=== PATIENT | female | born 1990 | race Caucasian/White ===

== ENCOUNTER 2017-01-03 05:36 | Outpatient (CLI) | payer BC, OTHER ==
[~2017-01-03] VITALS: Ht 168.9 cm; Wt 59.0 kg
[2017-01-03] MEDS ORDERED: LISD30CA3 PO (09:26)
[2017-01-03] MEDS ORDERED: ETHY1TAB3 PO (09:26)
== END 2017-01-03 09:51 ==
LOC: PREOP 05:36
PROVIDERS: ATTEND Obstetrics & Gynecology
DX: Z01.818 Encounter for other preprocedural examination (principal); R10.2 Pelvic and perineal pain; N80.9 Endometriosis, unspecified; D64.9 Anemia, unspecified

== ENCOUNTER 2017-01-08 11:01 | Day surgery (SDC) | payer BC, OTHER ==
[~2017-01-08] VITALS: Ht 168.9 cm; Wt 59.0 kg
[~2017-01-08 11:01] MED LIST: ETHY1TAB3 PO; LISD30CA3 PO
[2017-01-08 11:30] VITALS: BP 133/90
[2017-01-08] MEDS ORDERED: ceFAZolin 1 GM/NS 50 ML IVPB IV ONE ×2 (11:30)
[2017-01-08] MEDS ORDERED: CATHETER FLUSH 10 ML SYR IV PRN (11:30)
[2017-01-08] MEDS: LACTATED RINGERS 1,000 ML IV SCH ×2 (11:30→14:05)
[2017-01-08 11:41] LABS: BASOPHILS % (AUTO) 1 % (0-10); EOSINOPHILS # (AUTO) 0.3 10^3/uL (0.0-0.3); EOSINOPHILS % (AUTO) 4 % (0-10); LYMPHOCYTES # (AUTO) 2.3 X 10^3 (1.0-4.0); LYMPHOCYTES % (AUTO) 28 % (12-44); MEAN CORPUSCULAR HEMOGLOBIN 30 PG (25-34); MEAN CORPUSCULAR HGB CONC 34 G/DL (32-36); MEAN CORPUSCULAR VOLUME 88 FL (80-99); MEAN PLATELET VOLUME 8.7 FL (7.4-10.4); MONOCYTES # (AUTO) 0.4 X 10^3 (0.0-1.0); MONOCYTES % (AUTO) 5 % (0-12); NEUTROPHILS # (AUTO) 5.1 X 10^3 (1.8-7.8); NEUTROPHILS % (AUTO) 62 % (42-75); PLATELET COUNT 435 10^3/uL (130-400); RED BLOOD COUNT 4.41 10^6/uL (4.35-5.85); RED CELL DISTRIBUTION WIDTH 12.8 % (10.0-14.5); WHITE BLOOD COUNT 8.2 10^3/uL (4.3-11.0)
[2017-01-08] MEDS ORDERED: LIDOCAINE PF 2% 5 ML (XYLOCAINE) VIAL ONE (11:43)
[2017-01-08] MEDS ORDERED: proPOfol 200 MG/20 ML (DIPRIVAN) VIAL IV ONE (11:43)
[2017-01-08] MEDS ORDERED: SEVOFLURANE (ULTANE) 15 ML INHAL SOLN ONE ×7 (11:43→14:33)
[2017-01-08] MEDS ORDERED: DEXAMETHASONE PF 10 MG/ML (DECADRON) VIAL ONE (11:43)
[2017-01-08] MEDS ORDERED: LACTATED RINGERS 1,000 ML IV ONE ×2 (11:43→14:28)
[2017-01-08] MEDS ORDERED: ONDANSETRON 4 MG/2 ML (SDV) Z0FRAN ONE (11:43)
[2017-01-08] MEDS ORDERED: fentaNYL INJECTION 100 MCG/2 ML AMP ONE ×2 (11:44→13:57)
[2017-01-08] MEDS ORDERED: MIDAZOLAM 2 MG/2 ML (VERSED) VIAL ONE (11:44)
[2017-01-08] MEDS ORDERED: ROCURONIUM 50 MG/5 ML (ZEMURON) VIAL IV ONE (11:49)
[2017-01-08] MEDS ORDERED: BUP/EPI 0.25% 1:200,000 (MARCAINE) 10 ML VIAL IJ ONE (11:50)
[2017-01-08] MEDS ORDERED: D5 LR IV SOLUTION 1,000 ML IV SCH (13:06)
--- NOTE | 2017-01-08 13:06 | Progress Note-Pre Operative ---
Pre-Operative Progress Note H&P Reviewed The H&P was reviewed, patient examined and no changes noted. Date Seen by Provider: Jan 08, 2017 Time Seen by Provider: 13:06 Date H&P Reviewed: Jan 08, 2017 Time H&P Reviewed: 13:06 Pre-Operative Diagnosis: cchronic pelvic pain not resolved with medical management MARLEN ARZATE MD Jan 08, 2017 1:06 pm
[2017-01-08] MEDS ORDERED: OXYC-202 PO (13:08)
--- NOTE | 2017-01-08 13:09 | Discharge Instructions ---
Discharge Instructions Discharge Medications New, Converted or Re-Newed RX: RX on Chart Patient Instructions Patient Instructions: as directed Return to The Hospital For: as directed Activity & Diet Discharge Diet: No Restrictions Activity as Tolerated: No Orders-Post D/C & Referrals Follow Up Appt: return to clinic in 1 week for suture removal Call to make follow up appt. for patient in 4 weeks. Activity: Rest for 24 hours, than as tolerated. Wound Care: May remove Band-Aid tomorrow. Replace as desired. Keep incisions clean and dry. Wash daily with soap and water. Diet: As tolerated-Clear Liquids only if nauseated. May shower or tub bathe as desired. No driving for 24 hours, no alcoholic beverages for 24 hours, and nothing per vagina (no tampons, douching, or intercourse) for 2 weeks. Patient to return to the clinic as soon as possible for: Temperature greater than 101F, Severe Pain, Foul discharge from incision or vagina, Excessive Bleeding (more than a period). MARLEN ARZATE MD Jan 08, 2017 1:09 pm
[2017-01-08] MEDS ORDERED: ONDANSETRON 4 MG/2 ML (SDV) Z0FRAN IVP PRN ×2 (13:15→14:30)
[2017-01-08] MEDS ORDERED: PROMETHAZINE INJ 25 MG/ML (PHENERGAN) AMP IM ONE (13:15)
[2017-01-08] MEDS ORDERED: ESTROGENS CONJ IV 25 MG/5 ML (PREMARIN) VIAL IVP ONE (13:15)
[2017-01-08] MEDS ORDERED: KETOROLAC 30 MG/ML VIAL IVP ONE ×2 (13:15→14:30)
[2017-01-08] MEDS ORDERED: MEPERIDINE (DEMEROL) INJ 100 MG/ML IM ONE (13:15)
[2017-01-08] MEDS ORDERED: oxyCODONE/APAP 10/325MG (PERCOCET 10) TABLET PO PRN (13:15)
[2017-01-08] MEDS ORDERED: morphine INJ 10 MG/ML 1ML (SYR OR VIAL) ONE (14:12)
[2017-01-08] MEDS ORDERED: WATER (STERILE) FOR INJECTION 10 ML ONE (14:12)
[2017-01-08] MEDS ORDERED: ESTROGENS CONJ IV 25 MG/5 ML (PREMARIN) VIAL ONE (14:12)
[2017-01-08] MEDS ORDERED: KETOROLAC 30 MG/ML VIAL ONE (14:12)
[2017-01-08] MEDS ORDERED: PROMETHAZINE INJ 25 MG/ML (PHENERGAN) AMP IVP PRN (14:30)
[2017-01-08] MEDS: morphine INJ 10 MG/ML 1ML (SYR OR VIAL) IVP PRN ×2 (15:04→15:12)
[2017-01-08 15:45] VITALS: BP 148/89
[2017-01-08] MEDS ORDERED: oxyCODONE/APAP 10/325MG (PERCOCET 10) TABLET PO ONE (15:47)
[2017-01-08 16:15] VITALS: BP 135/77
[2017-01-08 16:45] VITALS: BP 142/78
[2017-01-08 17:30] VITALS: BP 142/78
--- NOTE | 2017-01-09 17:55 | OPERATIVE REPORT ---
PROCEDURE PHYSICIAN: MARLEN ARZATE DATE OF PROCEDURE: 01/08/2017 PREOPERATIVE DIAGNOSIS: Chronic pelvic pain. POSTOPERATIVE DIAGNOSES: 1. Chronic pelvic pain. 2. Endometriosis. 3. Polycystic ovaries. 4. Pelvic adhesions. 5. Chronic versus acute appendicitis. OPERATIVE PROCEDURE: 1. Laparoscopic destruction of endometriosis. 2. Laparoscopic appendectomy. 3. Laparoscopic adhesiolysed. 4. Laparoscopic ovarian cyst aspirations. OPERATIVE DESCRIPTION: With the patient in the supine position, under satisfactory general anesthesia, she was repositioned in dorsal lithotomy position in the [facility] and prepped and draped in usual fashion for abdominal and vaginal surgery. The urinary bladder was drained with straight catheter. A weighted speculum was placed in the posterior fornix of the vagina. Cervix exposed and grasped anteriorly with single-tooth tenaculum. The uterus sounded to 8.5 cm with uterine sound. The cervix was then serially dilated with Justin dilators to accommodate a uterine manipulator, which was placed and the bulb filled 4 mL of air. The tenaculum and speculum were removed and the patient brought in low dorsal lithotomy position. A 5 mm incision was made in the left upper quadrant after first infiltrating the area with 0.25% Marcaine with epinephrine. Veress needle was placed through that incision into the abdominal cavity, correct placement confirmed with the water drop test and the abdomen insufflated with 2.4 liters of carbon dioxide. The Veress needle was removed and a 5 mm Optiview laparoscopic port placed under direct vision. The patient was placed in Trendelenburg and a port of 5 mm was placed suprapubically to allow exploration of the pelvis while finding that the appendix looked abnormal. A 12 mm port was then placed through an incision of that size in the inferior margin of the umbilicus. All port sites were infiltrated with 0.25% Marcaine with epinephrine prior to incisions. With the patient in Trendelenburg. The bowel was spilled partially up out of pelvis. There were some adhesions of the sigmoid to the left pelvic brim and over the left IP ligament. There were adhesions of the cecum to the right lower lateral anterior abdominal wall. The appendix was dilated and injected at its distal to point and there was tissue consistent with endometriosis involving the distal 3rd of the appendix. The right ureter was seen to peristalt before anything was done. Eventually the left ureter was dissected retroperitoneally from the left and was seen to peristaltic well. The uterus had some mottling consistent with adenomyosis. There obvious endometriosis implants in the ovarian fossa and in the cul-de-sac. The left ovary was densely adherent to the left pelvic brim. The right fallopian tube was adherent to the right round ligament. There were endometriosis implants in the anterior cul-de-sac. Attention was first turned to the right fallopian tube. It was dissected free from its adhesions on the round ligament restoring it to a normal position and anatomy. The right ovarian fossa endometriosis implants were touched with electrocautery to destroy them. Those implants in the cul-de-sac were destroyed as well. There were some filmy adhesions in the cul-de-sac that were divided. These adhesions were beginning to obliterate the cul-de-sac. These were taken free. The left fallopian tube was obstructed by adhesions of the sigmoid. These adhesions were taken down very careful and meticulous dissection to allow the sigmoid to fall away from the pelvic brim. The fallopian tube was then dissected free from its adhesions of the ovary and then the ovary was dissected free with some difficulty from its extensive fibrous adhesions in the ovarian fossae. With the tube and ovary eventually freed and the endometriosis implants in the ovarian fossa on the left was destroyed with electrocautery as well. Here there was very little to no bleeding throughout the process up to this point. The pelvis was now irrigated, examined for hemostasis, which was complete. Additional implants of endometriosis in the pelvis were destroyed with electrocautery as were those then on the anterior cul-de-sac. With hemostasis assured, no further abnormal pathology, involving endometriosis, multiple cysts on both ovaries were touched with electrocautery to fenestrate and drain them. The small amount of straw-colored fluid was aspirated out of the pelvis. With that done, with hemostasis complete and with no further pelvic pathology, attention was then turned to the cecum and the appendix. The cecum was adherent to the right anterior lateral abdominal wall. These adhesions were taken free allowing mobility of the cecum and then the appendix was grasped and elevated. The mesoappendix was perforated close to the base of the appendix. Endo FRANK was placed across the base of the appendix and fired. A second firing of the end FRANK across the mesoappendix, severed it from its attachments. The appendix was then placed in an Endobag and brought out through the umbilical port. The stump of the appendix was copiously irrigated and then treated with several drops of Betadine solution. The pelvis was examined a final time now for hemostasis, which was complete and with no further remaining abnormal pathology, the procedure was terminated. The operative instruments were removed under direct vision as were the ports. The patient brought out of Trendelenburg and the abdomen was evacuated of insufflating gas. The skin incisions were hemostatic and they were closed with interrupted sutures of 3-0 nylon. The fascia at the infraumbilical incision was closed with [id number] suture of 2-0 Vicryl as well. The uterine manipulator bulb was drained. The instruments were removed from the vagina. Speculum replaced in the vagina. The cervix was examined for hemostasis, which was complete. There was no bleeding from the cervical os and no bleeding from the puncture sites for the tenaculum. With sponge and needle counts correct, hemostasis assured, and the procedure completed, the patient was uneventfully awakened from her general anesthesia and transferred to recovery room in stable condition with plans for discharge home PAR. Estimated blood loss was minimal. The patient tolerated the procedure well. Job ID: [id number] Dictated Date: 01/08/2017 14:45:42 Manager Banking Date: 01/09/2017 09:09:09 / liu
== END 2017-01-08 17:30 | disposition home or self-care (01) ==
LOC: SDC 11:01
PROVIDERS: ATTEND Obstetrics & Gynecology
DX: N80.1 Endometriosis of ovary (principal); N80.3 Endometriosis of pelvic peritoneum; N80.5 Endometriosis of intestine; K35.80 Unspecified acute appendicitis; E28.2 Polycystic ovarian syndrome; F90.9 Attention-deficit hyperactivity disorder, unspecified type; Z79.899 Other long term (current) drug therapy
CPT/HCPCS: 36415; 84703; 85025; 87081

== ENCOUNTER → 2019-03-13 | Outpatient (CLI) | payer OTHER ==
[~2019-03-13] MED LIST changes: +CATHETER FLUSH 10 ML SYR IV PRN; +HYDR-3812 PO; +LEVO75TA6 PO; +ONDA4TAB11 PO; +OXYC1TAB12 PO
--- NOTE | 2019-03-13 17:33 | Diagnostic Imaging Report ---
EXAMINATION: Hepatobiliary scan. INDICATION: Abdominal pain. FINDINGS: This study was performed following administration of 5.43 mCi of 99m-technetium Choletec. One can of Ensure was also administered. There are no prior studies available for comparison. There is a small amount of uptake within the gallbladder before 30 minutes. This would weight against the diagnosis of acute cholecystitis. There is also extension of the radiotracer into the small bowel indicating that the common bile duct is not obstructed. The ejection fraction is 45.6% (normal greater than 35%). IMPRESSION: 1. There is no evidence for acute cholecystitis or for obstruction of the common bile duct. 2. The ejection fraction is 45.6% and within normal limits. Dictated by: Dictated on workstation # [id number]
== END ==
LOC: CARD 12:25
PROVIDERS: ATTEND Surgery
DX: R10.11 Right upper quadrant pain (principal); R11.2 Nausea with vomiting, unspecified
CPT/HCPCS: 78227

== ENCOUNTER 2019-03-17 05:32 | Outpatient (CLI) | payer OTHER ==
[~2019-03-17] VITALS: Ht 170 cm; Wt 56.8 kg
[~2019-03-17 05:32] MED LIST changes: -CATHETER FLUSH 10 ML SYR IV PRN; -HYDR-3812 PO; -LEVO75TA6 PO; -ONDA4TAB11 PO
[2019-03-17] MEDS ORDERED: ONDA4TAB11 PO (10:17)
[2019-03-17] MEDS ORDERED: LEVO75TA6 PO (10:17)
[2019-03-18] MEDS ORDERED: HYDR-3812 PO (12:46)
== END 2019-03-17 10:30 | disposition home or self-care (01) ==
LOC: PREOP 05:32
PROVIDERS: ATTEND Surgery
DX: Z01.818 Encounter for other preprocedural examination (principal)

== ENCOUNTER → 2019-05-23 | Outpatient (CLI) | payer OTHER ==
[~2019-05-23] MED LIST changes: +HYDR-3812 PO; +LEVO75TA6 PO; +ONDA4TAB11 PO
== END ==
LOC: LAB FS 12:49
PROVIDERS: ATTEND Family Medicine
DX: Z77.21 Contact with and (suspected) exposure to potentially hazardous body fluids (principal)
CPT/HCPCS: 36415; 86703; 86803

== ENCOUNTER → 2019-06-24 | Outpatient (CLI) | payer OTHER | LOC: LAB FS 14:37 | PROVIDERS: ATTEND Family Medicine | DX: Z11.3 Encounter for screening for infections with a predominantly sexual mode of transmission (principal) | CPT/HCPCS: 36415; 86592; 87491; 87591 ==

== ENCOUNTER → 2019-06-25 | Outpatient (CLI) | payer OTHER | LOC: LABNPT 16:09 | PROVIDERS: ATTEND Family Medicine | DX: Z01.89 Encounter for other specified special examinations (principal) | CPT/HCPCS: 86701; 86703; 86803 ==

== ENCOUNTER → 2019-06-27 | Outpatient (CLI) | payer OTHER | LOC: LAB FS 17:15 | PROVIDERS: ATTEND Family Medicine | DX: Z00.00 Encounter for general adult medical examination without abnormal findings (principal) ==

== ENCOUNTER → 2019-08-21 | Outpatient (CLI) | payer OTHER ==
[~2019-08-21] MED LIST changes: +ACHD5005 PO; -HYDR-3812 PO
== END ==
LOC: LAB FS 08:57
PROVIDERS: ATTEND Family Medicine
DX: E07.9 Disorder of thyroid, unspecified (principal)
CPT/HCPCS: 36415; 84443

== ENCOUNTER → 2019-10-20 | Outpatient (CLI) | payer OTHER | LOC: LAB FS 16:40 | PROVIDERS: ATTEND Otolaryngology Otolaryngology/Facial Plastic Surgery | DX: L30.9 Dermatitis, unspecified (principal) | CPT/HCPCS: 36415; 86003 ==

== ENCOUNTER → 2019-10-24 | Outpatient (CLI) | payer OTHER ==
[2019-10-24 15:04] LABS: CHOLESTEROL 157 MG/DL (< 200); HDL CHOLESTEROL 56 MG/DL (40-60); TRIGLYCERIDES 89 MG/DL (<150); VLDL CHOLESTEROL 18 MG/DL (5-40)
== END ==
LOC: LAB FS 12:23
PROVIDERS: ATTEND Nurse Practitioner Family
DX: L70.0 Acne vulgaris (principal); Z79.899 Other long term (current) drug therapy
CPT/HCPCS: 36415; 80061; 84703

== ENCOUNTER → 2019-10-27 | Outpatient (CLI) | payer OTHER | LOC: LAB FS 16:26 | PROVIDERS: ATTEND Family Medicine | DX: Z20.828 Contact with and (suspected) exposure to other viral communicable diseases (principal) | CPT/HCPCS: 36415; 80051; 86769 ==

== ENCOUNTER → 2019-11-28 | Outpatient (CLI) | payer OTHER | LOC: LAB FS 11:28 | PROVIDERS: ATTEND Nurse Practitioner Family | DX: Z32.02 Encounter for pregnancy test, result negative (principal); L70.0 Acne vulgaris; Z79.899 Other long term (current) drug therapy | CPT/HCPCS: 84703 ==

== ENCOUNTER → 2020-01-09 | Outpatient (CLI) | payer OTHER | LOC: LABNPT 10:31 | PROVIDERS: ATTEND Nurse Practitioner Family | DX: L70.0 Acne vulgaris (principal); Z79.899 Other long term (current) drug therapy | CPT/HCPCS: 84703 ==

== ENCOUNTER → 2020-02-17 | Outpatient (CLI) | payer OTHER ==
[2020-02-17 14:10] LABS: ALANINE AMINOTRANSFERASE 42 U/L (0-55); ALBUMIN 4.1 GM/DL (3.2-4.5); ALKALINE PHOSPHATASE 67 U/L (40-136); BILIRUBIN,TOTAL 0.2 MG/DL (0.1-1.0); BUN/CREATININE RATIO 12; CALCIUM 9.2 MG/DL (8.5-10.1); CARBON DIOXIDE 25 MMOL/L (21-32); CHLORIDE 104 MMOL/L (98-107); CREATININE SERUM 0.76 MG/DL (0.60-1.30); GFR ESTIMATED > 60; GLUCOSE 94 MG/DL (70-105); POTASSIUM 4.5 MMOL/L (3.6-5.0); SODIUM 138 MMOL/L (135-145)
[2020-02-17 15:34] LABS: CHOLESTEROL 145 MG/DL (< 200); HDL CHOLESTEROL 51 MG/DL (40-60); TRIGLYCERIDES 85 MG/DL (<150); VLDL CHOLESTEROL 17 MG/DL (5-40)
== END ==
LOC: LAB FS 12:53
PROVIDERS: ATTEND Nurse Practitioner Family
DX: L70.0 Acne vulgaris (principal); Z79.899 Other long term (current) drug therapy
CPT/HCPCS: 36415; 80053; 80061; 84703

== ENCOUNTER → 2020-03-18 | Outpatient (CLI) | payer OTHER ==
[2020-03-18 12:14] LABS: ALANINE AMINOTRANSFERASE 48 U/L (0-55); ALBUMIN 4.8 GM/DL (3.2-4.5); ALKALINE PHOSPHATASE 74 U/L (40-136); BILIRUBIN,TOTAL 0.3 MG/DL (0.1-1.0); BUN/CREATININE RATIO 14; CALCIUM 9.7 MG/DL (8.5-10.1); CARBON DIOXIDE 25 MMOL/L (21-32); CHLORIDE 101 MMOL/L (98-107); CREATININE SERUM 0.77 MG/DL (0.60-1.30); GFR ESTIMATED > 60; GLUCOSE 101 MG/DL (70-105); POTASSIUM 3.7 MMOL/L (3.6-5.0); SODIUM 140 MMOL/L (135-145); TOTAL PROTEIN 8.5 GM/DL (6.4-8.2)
[2020-03-18 14:57] LABS: CHOLESTEROL 184 MG/DL (< 200); HDL CHOLESTEROL 60 MG/DL (40-60); TRIGLYCERIDES 111 MG/DL (<150); VLDL CHOLESTEROL 22 MG/DL (5-40)
== END ==
LOC: LAB FS 11:03
PROVIDERS: ATTEND Nurse Practitioner Family
DX: L70.0 Acne vulgaris (principal); Z79.899 Other long term (current) drug therapy
CPT/HCPCS: 36415; 80053; 80061; 84703

== ENCOUNTER → 2020-04-15 | Outpatient (CLI) | payer OTHER | LOC: LAB FS 09:33 | PROVIDERS: ATTEND Nurse Practitioner Family | DX: L70.0 Acne vulgaris (principal); Z79.899 Other long term (current) drug therapy | CPT/HCPCS: 84703 ==

== ENCOUNTER → 2020-05-19 | Outpatient (CLI) | payer OTHER | LOC: LAB FS 09:32 | PROVIDERS: ATTEND Nurse Practitioner Family | DX: L70.0 Acne vulgaris (principal); Z79.899 Other long term (current) drug therapy | CPT/HCPCS: 84703 ==

== ENCOUNTER → 2020-06-22 | Outpatient (CLI) | payer OTHER | LOC: LAB FS 10:00 | PROVIDERS: ATTEND Nurse Practitioner Family | DX: C70.0 Malignant neoplasm of cerebral meninges (principal); Z79.899 Other long term (current) drug therapy | CPT/HCPCS: 84703 ==

== ENCOUNTER → 2020-08-03 | Outpatient (CLI) | payer OTHER | LOC: RAD FS 11:53 | PROVIDERS: ATTEND Nurse Practitioner Family | DX: Z79.899 Other long term (current) drug therapy (principal) | CPT/HCPCS: 84703 ==

== ENCOUNTER → 2020-09-16 | Outpatient (CLI) | payer OTHER | LOC: LAB FS 11:56 | PROVIDERS: ATTEND Family Medicine | DX: E03.9 Hypothyroidism, unspecified (principal) | CPT/HCPCS: 36415; 84443 ==

== ENCOUNTER → 2021-02-09 | Outpatient (CLI) | payer OTHER | LOC: LAB FS 15:22 | PROVIDERS: ATTEND Physician Assistant | DX: L70.0 Acne vulgaris (principal); Z79.899 Other long term (current) drug therapy | CPT/HCPCS: 36415; 84703 ==

== ENCOUNTER → 2021-03-12 | Outpatient (CLI) | payer OTHER ==
[2021-03-12 10:00] LABS: ALBUMIN 4.3 GM/DL (3.2-4.5); BILIRUBIN,TOTAL 0.2 MG/DL (0.1-1.0); CALCIUM 9.1 MG/DL (8.5-10.1); CREATININE SERUM 0.89 MG/DL (0.60-1.30); POTASSIUM 4.1 MMOL/L (3.6-5.0); TOTAL PROTEIN 7.4 GM/DL (6.4-8.2)
== END ==
LOC: LAB FS 09:13
PROVIDERS: ATTEND Physician Assistant
DX: L70.0 Acne vulgaris (principal); Z79.899 Other long term (current) drug therapy
CPT/HCPCS: 36415; 80053; 84478; 84703

== ENCOUNTER → 2021-04-10 | Outpatient (CLI) | payer OTHER ==
[2021-04-10 21:53] LABS: ALBUMIN 4.5 GM/DL (3.2-4.5); BILIRUBIN,TOTAL 0.2 MG/DL (0.1-1.0); CALCIUM 9.5 MG/DL (8.5-10.1); CREATININE SERUM 0.78 MG/DL (0.60-1.30); POTASSIUM 3.9 MMOL/L (3.6-5.0); TOTAL PROTEIN 7.5 GM/DL (6.4-8.2)
== END ==
LOC: LAB 21:15
PROVIDERS: ATTEND Physician Assistant
DX: L70.0 Acne vulgaris (principal); Z79.899 Other long term (current) drug therapy
CPT/HCPCS: 36415; 80053; 84478; 84703

== ENCOUNTER → 2021-04-11 | Outpatient (CLI) | payer OTHER | LOC: LAB FS 08:06 | PROVIDERS: ATTEND Physician Assistant | DX: L70.0 Acne vulgaris (principal); Z79.899 Other long term (current) drug therapy | CPT/HCPCS: 36415; 84478 ==

== ENCOUNTER → 2021-05-10 | Outpatient (CLI) | payer OTHER ==
[2021-05-10 11:50] LABS: ALBUMIN 4.5 GM/DL (3.2-4.5); BILIRUBIN,TOTAL 0.3 MG/DL (0.1-1.0); CALCIUM 9.7 MG/DL (8.5-10.1); CREATININE SERUM 0.74 MG/DL (0.60-1.30); POTASSIUM 4.3 MMOL/L (3.6-5.0); TOTAL PROTEIN 7.9 GM/DL (6.4-8.2)
== END ==
LOC: LAB FS 09:14
PROVIDERS: ATTEND Physician Assistant
DX: L70.0 Acne vulgaris (principal); L20.89 Other atopic dermatitis; Z79.899 Other long term (current) drug therapy
CPT/HCPCS: 36415; 80053; 84703

== ENCOUNTER → 2021-05-11 | Outpatient (CLI) | payer OTHER | LOC: LAB FS 08:56 | PROVIDERS: ATTEND Physician Assistant | DX: L70.0 Acne vulgaris (principal); L20.89 Other atopic dermatitis; Z79.899 Other long term (current) drug therapy | CPT/HCPCS: 36415; 84478 ==

== ENCOUNTER → 2021-06-02 | Outpatient (CLI) | payer OTHER ==
[2021-06-06 17:19] LABS: FREE T4 (FREE THYROXINE) 1.1 NG/DL (0.70-1.48)
== END ==
LOC: LAB FS 14:14
PROVIDERS: ATTEND Registered Nurse Emergency
DX: E03.9 Hypothyroidism, unspecified (principal)
CPT/HCPCS: 36415; 84439; 84443

== ENCOUNTER → 2021-06-06 | Outpatient (CLI) | payer OTHER | LOC: LAB FS 19:40 | PROVIDERS: ATTEND Family Medicine | DX: E03.9 Hypothyroidism, unspecified (principal) | CPT/HCPCS: 36415; 84481 ==

== ENCOUNTER → 2021-06-08 | Outpatient (CLI) | payer OTHER | LOC: LAB FS 13:05 | PROVIDERS: ATTEND Family Medicine | DX: E06.3 Autoimmune thyroiditis (principal) | CPT/HCPCS: 36415; 86376 ==

== ENCOUNTER → 2021-06-14 | Outpatient (CLI) | payer OTHER | LOC: LAB FS 09:11 | PROVIDERS: ATTEND Dermatology | DX: L70.0 Acne vulgaris (principal); L20.89 Other atopic dermatitis; Z79.899 Other long term (current) drug therapy | CPT/HCPCS: 36415; 84703 ==

== ENCOUNTER → 2021-07-11 | Outpatient (CLI) | payer OTHER | LOC: LAB FS 08:18 | PROVIDERS: ATTEND Physician Assistant | DX: L70.0 Acne vulgaris (principal); L20.89 Other atopic dermatitis; Z79.899 Other long term (current) drug therapy | CPT/HCPCS: 36415; 84703 ==

== ENCOUNTER → 2021-08-12 | Outpatient (CLI) | payer OTHER ==
[2021-08-12 20:45] LABS: HEMATOCRIT 37 % (35-52); HEMOGLOBIN 12.3 g/dL (11.5-16.0); MEAN CORPUSCULAR HEMOGLOBIN 29 pg (25-34); MEAN CORPUSCULAR HGB CONC 34 g/dL (32-36); MEAN CORPUSCULAR VOLUME 88 fL (80-99); WHITE BLOOD COUNT 7.9 10^3/uL (4.3-11.0)
[2021-08-12 20:48] LABS: PLATELET COUNT 1113 10^3/uL (130-400)
[2021-08-12 20:49] LABS: BASOPHILS # (AUTO) 0.1 10^3/uL (0.0-0.1); BASOPHILS % (AUTO) 1 % (0-10); EOSINOPHILS # (AUTO) 0.3 10^3/uL (0.0-0.3); EOSINOPHILS % (AUTO) 3 % (0-10); LYMPHOCYTES # (AUTO) 2.8 X 10^3 (1.0-4.0); LYMPHOCYTES % (AUTO) 35 % (12-44); MEAN PLATELET VOLUME 7.9 fL (9.0-12.2); MONOCYTES # (AUTO) 0.5 X 10^3 (0.0-1.0); MONOCYTES % (AUTO) 6 % (0-12); NEUTROPHILS # (AUTO) 4.3 X 10^3 (1.8-7.8); NEUTROPHILS % (AUTO) 54 % (42-75)
[2021-08-12 20:53] LABS: ERYTHROCYTE SEDIMENTATION RATE 4 MM/HR (0-20)
[2021-08-12 21:13] LABS: EOSINOPHILS % (MANUAL) 3 %; LYMPHOCYTES % (MANUAL) 41 %; MONOCYTES % (MANUAL) 5 %; NEUTROPHILS % (MANUAL) 51 %; SMEAR SCAN COMMENT PLTS INCREASED
== END ==
LOC: LAB FS 20:21
PROVIDERS: ATTEND Family Medicine
DX: J06.9 Acute upper respiratory infection, unspecified (principal)
CPT/HCPCS: 36415; 82728; 83540; 83550; 85007; 85027; 85652; 86141

== ENCOUNTER → 2021-08-14 | Outpatient (CLI) | payer OTHER | LOC: LAB FS 21:13 | PROVIDERS: ATTEND Physician Assistant | DX: L70.0 Acne vulgaris (principal); Z79.899 Other long term (current) drug therapy | CPT/HCPCS: 36415; 82728; 83540; 83550; 84703 ==

== ENCOUNTER → 2021-08-19 | Outpatient (CLI) | payer OTHER ==
[2021-08-19 12:27] LABS: BASOPHILS % (AUTO) 1 % (0-10); EOSINOPHILS # (AUTO) 0.2 10^3/uL (0.0-0.3); EOSINOPHILS % (AUTO) 2 % (0-10); HEMATOCRIT 36 % (35-52); HEMOGLOBIN 11.9 g/dL (11.5-16.0); LYMPHOCYTES # (AUTO) 2.2 10^3/uL (1.0-4.0); LYMPHOCYTES % (AUTO) 27 % (12-44); MEAN CORPUSCULAR HEMOGLOBIN 29 pg (25-34); MEAN CORPUSCULAR HGB CONC 33 g/dL (32-36); MEAN CORPUSCULAR VOLUME 88 fL (80-99); MONOCYTES # (AUTO) 0.4 10^3/uL (0.0-1.0); MONOCYTES % (AUTO) 5 % (0-12); NEUTROPHILS # (AUTO) 5.3 10^3/uL (1.8-7.8); NEUTROPHILS % (AUTO) 65 % (42-75); WHITE BLOOD COUNT 8.1 10^3/uL (4.3-11.0)
[2021-08-19 12:41] LABS: PLATELET COUNT 1083 10^3/uL (130-400)
== END ==
LOC: LAB FS 12:00
PROVIDERS: ATTEND Family Medicine
DX: E61.1 Iron deficiency (principal)
CPT/HCPCS: 36415; 85025

== ENCOUNTER 2021-08-23 13:14 | Outpatient (RCR) | payer OTHER ==
[2021-08-26] MEDS ORDERED: FERR324T4 PO (10:22)
[2021-08-26] MEDS ORDERED: ASPI-38 PO (10:22)
[2021-08-26] MEDS ORDERED: ALPR0.254 PO (10:22)
[2021-08-26] MEDS ORDERED: ETHY1TAB2 PO (10:22)
[2021-08-26] MEDS ORDERED: RT-ALBUINH INH (10:22)
[2021-08-26] MEDS ORDERED: AMLO-250 PO (10:22)
[2021-08-26] MEDS ORDERED: NITR1OIN TD (10:26)
[2021-08-26] MEDS ORDERED: NF-VYVAN20 PO (10:26)
[2021-08-26] MEDS ORDERED: MONT-40 PO (10:26)
[2021-08-26] MEDS ORDERED: TR1C15 TP (10:26)
== END 2021-09-08 | disposition home or self-care (01) ==
LOC: ONC 13:14
PROVIDERS: ATTEND Internal Medicine Hematology & Oncology
DX: D72.829 Elevated white blood cell count, unspecified (principal); E03.9 Hypothyroidism, unspecified; F41.1 Generalized anxiety disorder
CPT/HCPCS: 99214

== ENCOUNTER 2021-08-26 11:15 | Day surgery (SDC) | payer OTHER ==
[2021-08-26] VITALS (12 sets, daily range): BP systolic 101–128; BP diastolic 73–87
[2021-08-26 10:17] LABS: ABSOLUTE RETIC # 73 10e9/uL (24-90); BASOPHILS # (AUTO) 0.1 10^3/uL (0.0-0.1); BASOPHILS % (AUTO) 1 % (0-10); EOSINOPHILS # (AUTO) 0.2 10^3/uL (0.0-0.3); EOSINOPHILS % (AUTO) 2 % (0-10); HEMATOCRIT 37 % (35-52); HEMOGLOBIN 12.4 g/dL (11.5-16.0); LYMPHOCYTES # (AUTO) 1.8 10^3/uL (1.0-4.0); LYMPHOCYTES % (AUTO) 21 % (12-44); MEAN CORPUSCULAR HEMOGLOBIN 30 pg (25-34); MEAN CORPUSCULAR HGB CONC 34 g/dL (32-36); MEAN CORPUSCULAR VOLUME 90 fL (80-99); MEAN PLATELET VOLUME 8.1 fL (9.0-12.2); MONOCYTES # (AUTO) 0.5 10^3/uL (0.0-1.0); MONOCYTES % (AUTO) 5 % (0-12); NEUTROPHILS # (AUTO) 6.4 10^3/uL (1.8-7.8); NEUTROPHILS % (AUTO) 71 % (42-75); PLATELET COUNT 926 10^3/uL (130-400); RETICULOCYTE % 1.78 % (0.50-2.40); WHITE BLOOD COUNT 8.9 10^3/uL (4.3-11.0)
[2021-08-26 10:32] LABS: PROTHROMBIN TIME PATIENT 13.5 SEC (12.2-14.7)
[~2021-08-26 11:15] MED LIST changes: +ALPR0.254 PO; +AMLO-250 PO; +ASPI-38 PO; +ETHY1TAB2 PO; +FERR324T4 PO; +LIDOCAINE 1% INJ 20 ML VIAL INJ ONE; +MIDAZOLAM 2 MG/2 ML (VERSED) VIAL INJ ONE; +MONT-40 PO; +NF-VYVAN20 PO; +NITR1OIN TD; +NS IV 1000 ML 1,000 ML IV SCH; +ONDANSETRON 4 MG/2 ML (SDV) Z0FRAN IVP ONE; +RT-ALBUINH INH; +TR1C15 TP; +fentaNYL INJ 100 MCG/2 ML AMP INJ ONE
[2021-08-26 11:34] LABS: BAND NEUTROPHILS 1 %; BASOPHILS % (MANUAL) 0 %; EOSINOPHILS % (MANUAL) 2 %; LYMPHOCYTES % (MANUAL) 23 %; MONOCYTES % (MANUAL) 3 %; NEUTROPHILS % (MANUAL) 71 %
--- NOTE | 2021-08-26 11:40 | Pre-Op Note & Conscious Sedat ---
Pre-Operative Progress Note H&P Reviewed The H&P was reviewed, patient examined and no changes noted. Date H&P Reviewed: Aug 26, 2021 Time H&P Reviewed: 10:00 Pre-Op Diagnosis: thrombocytosis Conscious Sedation Pre-Proced Time 10:00 ASA Score 2 For ASA 3 and 4: Consider anesthesia and medical clearance. Also, for patients with a history of failed moderate sedation consider anesthesia. Airway Lungs Heart ASA score ASA 1: a normal healthy patient ASA 2: a patient with a mild systemic disease (mid diabetes, controlled hypertension, obesity ASA 3: a patient with a severe systemic disease that limits activity (angina, COPD, prior Myocardial infarction) ASA 4: a patient with an incapacitating disease that is a constant threat to life (CHF, renal failure) ASA 5: a moribund patient not expected to survive 24 hrs. (ruptured aneurysm) ASA 6: a declared brain- patient whose organs are being harvested. For emergent operations, add the letter E after the classification Mallampati Classification Grade 2 Sedation Plan Analgesia, Amnesia, Plan communicated to team members, Discussed options with patient/fam, Discussed risks with patient/fam The patient is an appropriate candidate to undergo the planned procedure, sedation, and anesthesia. The patient immediately re-assessed prior to indication. MARIELLE PETERSON MD Aug 26, 2021 11:40
--- NOTE | 2021-08-26 12:00 | Diagnostic Imaging Report ---
INDICATION: Thrombocytosis. Patient presents for a CT-guided bone marrow aspiration and core biopsy. Patient brought to the CT suite placed on table in the prone position. Axial imaging through the pelvis was performed to evaluate appropriate entry site. The procedure was performed utilizing conscious sedation with radiology nursing and constant patient monitoring. Patient was given a total of 50 mcg of fentanyl intravenously and 1.5 mg of Versed intravenously. Total procedure time was 12 minutes. The low back was prepped and draped in usual sterile fashion. Small amount of 1% lidocaine was utilized for local anesthesia. A bone marrow needle was advanced and placed with its tip along the posterior cortex of the right iliac bone. The needle was advanced to the cortex utilized the bone marrow drill. 2 bone marrow aspirates were then obtained. Next, the drill was utilized to obtain a bone marrow core sample. The needle was removed and hemostasis was obtained using manual compression. Patient tolerated procedure well and left the department in stable condition. IMPRESSION: Successful CT-guided bone marrow aspiration and core biopsy, utilizing conscious sedation. Pathology results are currently pending. Dictated by: Dictated on workstation # [id number]
[2021-08-26] MEDS ORDERED: HYDROcodone/APAP 5 MG/325 MG (LORTAB) TAB PO PRN (12:15)
== END 2021-08-26 13:45 | disposition home or self-care (01) ==
LOC: RAD 11:15
PROVIDERS: ATTEND Internal Medicine Hematology & Oncology
DX: D75.839 Thrombocytosis, unspecified (principal)
CPT/HCPCS: 36415; 38222; 84703; 85007; 85027; 85045; 85610; 85730; 99156

== ENCOUNTER 2021-09-13 15:22 | Outpatient (RCR) | payer OTHER ==
[~2021-09-13 15:22] MED LIST changes: -LIDOCAINE 1% INJ 20 ML VIAL INJ ONE; -MIDAZOLAM 2 MG/2 ML (VERSED) VIAL INJ ONE; -NS IV 1000 ML 1,000 ML IV SCH; -ONDANSETRON 4 MG/2 ML (SDV) Z0FRAN IVP ONE; -fentaNYL INJ 100 MCG/2 ML AMP INJ ONE
== END 2021-10-08 | disposition home or self-care (01) ==
LOC: ONC 15:22
PROVIDERS: ATTEND Internal Medicine Hematology & Oncology
DX: D47.3 Essential (hemorrhagic) thrombocythemia (principal); E03.9 Hypothyroidism, unspecified; F41.1 Generalized anxiety disorder
CPT/HCPCS: 99213

== ENCOUNTER → 2021-09-14 | Outpatient (CLI) | payer OTHER | LOC: LAB FS 09:06 | PROVIDERS: ATTEND Physician Assistant | DX: L70.0 Acne vulgaris (principal) | CPT/HCPCS: 36415; 84703 ==

== ENCOUNTER → 2021-11-22 | Outpatient (CLI) | payer OTHER ==
--- NOTE | 2021-11-22 18:16 | Diagnostic Imaging Report ---
Indication: Bilateral knee pain. Time of Exam: 6:04 PM Weightbearing AP and lateral views of the bilateral knees was performed. Patellar sunrise views were also obtained bilaterally. Joint spaces appear to be well-maintained bilaterally. The articular surfaces are smooth. No osteochondral defect is detected. No joint effusions are seen. No fractures are detected. IMPRESSION: Unremarkable bilateral knee radiographs. Dictated by: Dictated on workstation # [id number]
== END ==
LOC: RAD FS 17:47
PROVIDERS: ATTEND Orthopaedic Surgery
DX: M25.561 Pain in right knee (principal); M25.562 Pain in left knee

== ENCOUNTER 2021-12-14 09:33 | Outpatient (RCR) | payer OTHER ==
[2021-12-14 10:13] LABS: MEAN CORPUSCULAR VOLUME 91 fL (80-99); MEAN PLATELET VOLUME 7.8 fL (9.0-12.2); MONOCYTES # (AUTO) 0.5 10^3/uL (0.0-1.0)
[2021-12-14 10:15] LABS: BASOPHILS # (AUTO) 0.1 10^3/uL (0.0-0.1); BASOPHILS % (AUTO) 1 % (0-10); EOSINOPHILS # (AUTO) 0.2 10^3/uL (0.0-0.3); EOSINOPHILS % (AUTO) 3 % (0-10); HEMATOCRIT 42 % (35-52); HEMOGLOBIN 13.5 g/dL (11.5-16.0); LYMPHOCYTES # (AUTO) 1.7 10^3/uL (1.0-4.0); LYMPHOCYTES % (AUTO) 26 % (12-44); MEAN CORPUSCULAR HEMOGLOBIN 30 pg (25-34); MEAN CORPUSCULAR HGB CONC 33 g/dL (32-36); MONOCYTES % (AUTO) 8 % (0-12); NEUTROPHILS # (AUTO) 3.9 10^3/uL (1.8-7.8); NEUTROPHILS % (AUTO) 61 % (42-75); WHITE BLOOD COUNT 6.3 10^3/uL (4.3-11.0)
[2021-12-14 10:27] LABS: PLATELET COUNT 1298 10^3/uL (130-400); SMEAR SCAN COMMENT YES
== END 2022-01-08 | disposition home or self-care (01) ==
LOC: ONC 09:33
PROVIDERS: ATTEND Internal Medicine Hematology & Oncology
DX: D47.3 Essential (hemorrhagic) thrombocythemia (principal); E03.9 Hypothyroidism, unspecified
CPT/HCPCS: 85025; 85240; 85245; 85246; G0463; 99213

== ENCOUNTER → 2022-01-13 | Outpatient (CLI) | payer OTHER ==
[2022-01-13 11:52] LABS: BASOPHILS # (AUTO) 0.1 10^3/uL (0.0-0.1); BASOPHILS % (AUTO) 2 % (0-10); EOSINOPHILS # (AUTO) 0.2 10^3/uL (0.0-0.3); EOSINOPHILS % (AUTO) 3 % (0-10); HEMATOCRIT 42 % (35-52); LYMPHOCYTES # (AUTO) 2.1 10^3/uL (1.0-4.0); LYMPHOCYTES % (AUTO) 29 % (12-44); MEAN CORPUSCULAR HEMOGLOBIN 29 pg (25-34); MEAN CORPUSCULAR HGB CONC 34 g/dL (32-36); MEAN CORPUSCULAR VOLUME 87 fL (80-99); MEAN PLATELET VOLUME 7.7 fL (9.0-12.2); MONOCYTES # (AUTO) 0.5 10^3/uL (0.0-1.0); MONOCYTES % (AUTO) 7 % (0-12); NEUTROPHILS # (AUTO) 4.2 10^3/uL (1.8-7.8); NEUTROPHILS % (AUTO) 59 % (42-75); PLATELET COUNT 992 10^3/uL (130-400); WHITE BLOOD COUNT 7.1 10^3/uL (4.3-11.0)
[2022-01-13 12:55] LABS: ERYTHROCYTE SEDIMENTATION RATE 4 MM/HR (0-20)
== END ==
LOC: LAB FS 09:38
PROVIDERS: ATTEND Registered Nurse Emergency
DX: G43.109 Migraine with aura, not intractable, without status migrainosus (principal); E03.9 Hypothyroidism, unspecified; E61.1 Iron deficiency; F32.9 Major depressive disorder, single episode, unspecified; M25.50 Pain in unspecified joint
CPT/HCPCS: 36415; 82728; 83540; 83550; 84443; 85025; 85652; 86038; 86200

== ENCOUNTER 2022-03-08 10:22 | Outpatient (RCR) | payer OTHER ==
[2022-03-08 10:50] LABS: BASOPHILS % (AUTO) 1 % (0-10); EOSINOPHILS # (AUTO) 0.3 10^3/uL (0.0-0.3); EOSINOPHILS % (AUTO) 5 % (0-10); HEMATOCRIT 42 % (35-52); HEMOGLOBIN 13.9 g/dL (11.5-16.0); LYMPHOCYTES # (AUTO) 1.7 10^3/uL (1.0-4.0); LYMPHOCYTES % (AUTO) 25 % (12-44); MEAN CORPUSCULAR HEMOGLOBIN 30 pg (25-34); MEAN CORPUSCULAR HGB CONC 33 g/dL (32-36); MEAN CORPUSCULAR VOLUME 90 fL (80-99); MEAN PLATELET VOLUME 7.8 fL (9.0-12.2); MONOCYTES # (AUTO) 0.5 10^3/uL (0.0-1.0); MONOCYTES % (AUTO) 7 % (0-12); NEUTROPHILS # (AUTO) 4.4 10^3/uL (1.8-7.8); NEUTROPHILS % (AUTO) 63 % (42-75); PLATELET COUNT 867 10^3/uL (130-400)
== END 2022-03-10 | disposition home or self-care (01) ==
LOC: ONC 10:22
PROVIDERS: ATTEND Internal Medicine Hematology & Oncology
DX: D47.3 Essential (hemorrhagic) thrombocythemia (principal); E03.9 Hypothyroidism, unspecified
CPT/HCPCS: 85025; G0463; 36415; 99213

== ENCOUNTER → 2022-05-22 | Outpatient (CLI) | payer OTHER ==
[2022-05-22 13:14] LABS: BASOPHILS # (AUTO) 0.1 10^3/uL (0.0-0.1); BASOPHILS % (AUTO) 1 % (0-10); EOSINOPHILS # (AUTO) 0.1 10^3/uL (0.0-0.3); EOSINOPHILS % (AUTO) 3 % (0-10); HEMATOCRIT 36 % (35-52); HEMOGLOBIN 12.1 g/dL (11.5-16.0); LYMPHOCYTES # (AUTO) 1.8 10^3/uL (1.0-4.0); LYMPHOCYTES % (AUTO) 39 % (12-44); MEAN CORPUSCULAR HEMOGLOBIN 30 pg (25-34); MEAN CORPUSCULAR HGB CONC 33 g/dL (32-36); MEAN CORPUSCULAR VOLUME 90 fL (80-99); MEAN PLATELET VOLUME 7.7 fL (9.0-12.2); MONOCYTES # (AUTO) 0.2 10^3/uL (0.0-1.0); MONOCYTES % (AUTO) 5 % (0-12); NEUTROPHILS # (AUTO) 2.3 10^3/uL (1.8-7.8); NEUTROPHILS % (AUTO) 51 % (42-75); PLATELET COUNT 476 10^3/uL (130-400); WHITE BLOOD COUNT 4.5 10^3/uL (4.3-11.0)
== END ==
LOC: LAB FS 12:54
PROVIDERS: ATTEND Internal Medicine Hematology & Oncology
DX: D47.3 Essential (hemorrhagic) thrombocythemia (principal)
CPT/HCPCS: 36415; 85025

== ENCOUNTER 2022-05-23 05:28 | Outpatient (CLI) | payer OTHER ==
[~2022-05-23] VITALS: Ht 170.1 cm; Wt 54.5 kg
[2022-05-29] MEDS ORDERED: HYDROXYUREA (17:04)
[2022-05-29] MEDS ORDERED: [UNRECOGNIZED DRUG - OTHER] (17:04)
[2022-05-29] MEDS ORDERED: ASPI-999 PO (17:18)
[2022-05-29] MEDS ORDERED: BUPR-105 PO (17:18)
[2022-05-29] MEDS ORDERED: CETI10TA17 PO (17:18)
[2022-05-29] MEDS ORDERED: NF-HYD500C PO (17:18)
== END 2022-05-29 17:25 | disposition home or self-care (01) ==
LOC: PREOP 05:28
PROVIDERS: ATTEND Obstetrics & Gynecology
DX: Z01.818 Encounter for other preprocedural examination (principal); N80.9 Endometriosis, unspecified

== ENCOUNTER 2022-06-07 06:59 | Day surgery (SDC) | payer OTHER ==
[2022-06-07] VITALS (12 sets, daily range): BP systolic 106–125; BP diastolic 67–87
[~2022-06-07] VITALS: Ht 170.1 cm; Wt 54.5 kg
[~2022-06-07 06:59] MED LIST changes: +ASPI-999 PO; +BUPR-105 PO; +CETI10TA17 PO; +HYDROXYUREA; +NF-HYD500C PO; +[UNRECOGNIZED DRUG - OTHER]
[2022-06-07] MEDS ORDERED: METHYLENE BLUE 0.5% (PROVAYBLUE) 50 mg/10 ml vial IV ONE ×2 (07:25→09:18)
[2022-06-07] MEDS ORDERED: BUPIVACAINE 0.25% 30 ML (SENSORCAINE) VIAL ONE (07:25)
[2022-06-07] MEDS ORDERED: fentaNYL INJ 100 MCG/2 ML AMP ONE (07:34)
[2022-06-07] MEDS ORDERED: proPOfol 200 MG/20 ML (DIPRIVAN) VIAL IV ONE (07:34)
[2022-06-07] MEDS ORDERED: ROCURONIUM 10 MG/ML 5 ML SYRINGE IV ONE (07:34)
[2022-06-07] MEDS ORDERED: LIDOCAINE PF 2% 5 ML (XYLOCAINE) VIAL ONE (07:34)
[2022-06-07] MEDS ORDERED: MIDAZOLAM 2 MG/2 ML (VERSED) VIAL ONE (07:34)
--- NOTE | 2022-06-07 07:34 | History & Physical-Surgical ---
HPO-Surgical History of Present Illness Chief Complaint: CPP, dyspareunia Diagnosis/Surgical Indication: CPP,ENDOMETRIOSIS Procedure: DIAGNOSTIC LAPAROSCOPY WITH CHROMOTUBATION Date of Surgery: Jun 07, 2022 Weight (Pounds): 130 Weight (Ounces): 0.0 Height (Feet): 5 Height (Inches): 6.50 Allergies and Home Medications Allergies Coded Allergies: nortriptyline (Verified Allergy, Unknown, TREMORS, 05/29/22) Uncoded Allergies: SSRI'S (Allergy, Unknown, SERATONIN SYNDROME, 05/29/22) Patient Home Medication List Home Medication List Reviewed: Yes Aspirin (Aspirin) 81 Mg Tab.chew, 81 MG PO DAILY, (Reported) Entered as Reported by: BOLA FIGUEROA on 05/29/221717 Bupropion HCl (Bupropion HCl Sr) 150 Mg Tablet.er, 150 MG PO DAILY, (Reported) Entered as Reported by: BOLA FIGUEROA on 05/29/221717 Cetirizine HCl (Cetirizine HCl) 10 Mg Tablet, 10 MG PO UD, (Reported) Entered as Reported by: BOLA FIGUEROA on 05/29/221717 Ferrous Sulfate (Ferrous Sulfate) 324 Mg Tablet.dr, 324 MG PO DAILY, (Reported) Entered as Reported by: VEGA STONE on 08/26/21 1022 Hydroxyurea (Hydrea) 500 Mg Cap, 500 MG PO DAILY, (Reported) Entered as Reported by: BOLA FIGUEROA on 05/29/221717 Levothyroxine Sodium (Levothyroxine Sodium) 75 Mcg Tablet, 75 MCG PO DAILY, (Reported) Entered as Reported by: DRE ESCOBAR on 03/17/19 1017 Past Bmamxll-Nohzqp-Wbdsqo Hx Patient Social History 2nd Hand Smoke Exposure: No Recent Hopitalizations: No Immunizations Up To Date Date of Influenza Vaccine: Mar 22, 2022 Seasonal Allergies Seasonal Allergies: Yes Surgeries Yes (SEPTOPLASTY, WISDOM TEETH, ENDOMETRIAL ABLATION) Appendectomy Respiratory Yes ( A CHILD) Cardiovascular No Neurological Yes (ESSENTIAL THROMBOCYTHEMIA) Reproductive System Hx Reproductive Disorders: Yes (CPP) Sexually Transmitted Disease: No HIV/AIDS: No Female Reproductive Disorders: Endometriosis, Ovarian Cyst Genitourinary Yes Bladder Infection, UTI-Chronic Gastrointestinal Yes (ABD PAIN, N/V) Gastroesophageal Reflux, Chronic Diarrhea, Gall Bladder Disease Musculoskeletal Yes (NOSE FX, LEFT HAND FX) Fractures Endocrine History of Endocrine Disorders: Yes Endocrine Disorders: Hypothyroidsim HEENT History of HEENT Disorders: Yes (GLASSES/CONTACTS) Loss of Vision: Bilateral Hearing Impairment: Denies Cancer Yes (BLOOD CANCER) Psychosocial History of Psychiatric Problem: Yes Behavioral Health Disorders: ADD/ADHD, Anxiety, Depression Integumentary History of Skin or Integumenta: Yes Skin/Integumentary Disorders: Eczema Blood Transfusions History of Blood Disorders: No Adverse Reaction to a Blood Tr: No (N/A) Exam Vital Signs Capillary Refill : General Appearance: Alert, Oriented X3 HEENT: Atraumatic Respiratory: Clear to Auscultation Cardiovascular: Regular Rate Abdominal: Normal Bowel Sounds Extremities: No Clubbing Skin: No Rashes Neuro: Normal Gait Psych/Mental Status: Mental Status NL Assessment/Plan Assessment and Plan Diagnosis: Chronic pelvic pain Dyspareunia Dysmenorrhea Endometriosis P: Diagnostic laparoscopy w/ Chromotubation Admission Diagnosis Chronic pelvic pain Dyspareunia Dysmenorrhea Endometriosis Admission Status: Other (Outpt Proc) ANTONIO BRUNNER DO Jun 07, 2022 07:34
--- NOTE | 2022-06-07 07:38 | Discharge Inst-Women's Service ---
Discharge Inst-Women's Serv Depart Medication/Instructions New, Converted or Re-Newed RX: Transmitted to Pharmacy Problems Reviewed?: Yes Consults/Follow Up Additional Follow Up: Yes Orders/Referrals Dr Campbell in 7-10 days Activity Activity: Activity as Tolerated Driving Instructions: No Driving for 1 Week NO SMOKING: NO SMOKING Nothing Inside Vagina: No Douching, No [place], No Tampons Diet Discharge Diet: No Restrictions Symptoms to Report to : Bleeding Excessive, Pain Increased, Fever Over 101 Degrees F, Vaginal Bleeding Increase, Questions/Concerns For Any Problems or Questions: Contact Your Physician Skin/Wound Care Infection Signs and Symptoms: Increased Redness, Foul Odor of Wound, Increased Drainage, Skin Itchy or Has a Rash, Increased Swelling, Temperature Above 101 F Operative Area Clean and Dry: Keep Incision Clean/Dry Stitches/Bertha/Dermabond: Dermabond, Care of Stitches Bathing Instructions: ANTONIO Antonio DO Jun 07, 2022 07:38
[2022-06-07] MEDS ORDERED: ACHD5005 PO (07:39)
[2022-06-07] MEDS ORDERED: IBUP-844 PO (07:39)
[2022-06-07] MEDS ORDERED: ONDANSETRON 4 MG/2 ML (SDV) Z0FRAN IVP PRN ×2 (07:45→10:00)
[2022-06-07] MEDS ORDERED: KETOROLAC 30 MG/ML VIAL IVP ONE (07:45)
[2022-06-07] MEDS ORDERED: HYDROcodone/APAP 5 MG/325 MG (LORTAB) TAB PO PRN (07:45)
[2022-06-07] MEDS ORDERED: D5 LR IV SOLUTION 1,000 ML IV SCH (07:45)
[2022-06-07 07:57] LABS: BASOPHILS % (AUTO) 1 % (0-10); EOSINOPHILS # (AUTO) 0.1 10^3/uL (0.0-0.3); EOSINOPHILS % (AUTO) 1 % (0-10); HEMATOCRIT 37 % (35-52); HEMOGLOBIN 12.5 g/dL (11.5-16.0); LYMPHOCYTES # (AUTO) 1.5 10^3/uL (1.0-4.0); LYMPHOCYTES % (AUTO) 43 % (12-44); MEAN CORPUSCULAR HEMOGLOBIN 32 pg (25-34); MEAN CORPUSCULAR HGB CONC 34 g/dL (32-36); MEAN CORPUSCULAR VOLUME 93 fL (80-99); MEAN PLATELET VOLUME 8.5 fL (9.0-12.2); MONOCYTES # (AUTO) 0.3 10^3/uL (0.0-1.0); MONOCYTES % (AUTO) 9 % (0-12); NEUTROPHILS # (AUTO) 1.6 10^3/uL (1.8-7.8); NEUTROPHILS % (AUTO) 45 % (42-75); PLATELET COUNT 317 10^3/uL (130-400); WHITE BLOOD COUNT 3.6 10^3/uL (4.3-11.0)
[2022-06-07] MEDS ORDERED: LACTATED RINGERS 1,000 ML IV PRN (08:00)
[2022-06-07] MEDS ORDERED: ceFAZolin INJECTION 1,000 MG in NS (IVPB) 50 ML IV ONE (08:00)
[2022-06-07] MEDS ORDERED: GLYCOPYRROLATE 0.2 MG/ML (ROBINUL) 2 ML VIAL ONE ×2 (09:08→09:21)
[2022-06-07] MEDS ORDERED: KETOROLAC 30 MG/ML VIAL ONE (09:08)
[2022-06-07] MEDS ORDERED: BUPIVACAINE 0.25% 30 ML (SENSORCAINE) VIAL INJ ONE (09:16)
[2022-06-07] MEDS ORDERED: NEOSTIGMINE (BLOXIVERZ ) 1 MG/1ML 10 ML VIAL ONE (09:21)
[2022-06-07] MEDS ORDERED: SEVOFLURANE (ULTANE) 15 ML INHAL SOLN ONE (09:35)
[2022-06-07] MEDS ORDERED: PROMETHAZINE INJ 25 MG/ML (PHENERGAN) AMP IVP ONE (10:00)
[2022-06-07] MEDS ORDERED: morphine INJ 10 MG/ML 1ML (SYR OR VIAL) IVP ONE (10:00)
[2022-06-07] MEDS ORDERED: HYDROmorphone 2 MG/ML VIAL (DILAUDID) IV ONE (10:00)
[2022-06-07] MEDS ORDERED: ONDANSETRON 4 MG/2 ML (SDV) Z0FRAN ONE (10:07)
[2022-06-07] MEDS ORDERED: HYDROcodone/APAP 5 MG/325 MG (LORTAB) TAB ONE (11:06)
[2022-06-07] MEDS ORDERED: IBUPROFEN 600 MG (MOTRIN) TAB PO SCH (12:00)
--- NOTE | 2022-06-07 12:05 | Anesthesia-General Post-Op ---
General Patient Condition Mental Status/LOC: Same as Preop Cardiovascular: Satisfactory Nausea/Vomiting: Absent Respiratory: Satisfactory Pain: Controlled Complications: Absent Post Op Complications Complications None Follow Up Care/Instructions Patient Instructions None needed. Anesthesia/Patient Condition Patient Condition Patient is doing well, no complaints, stable vital signs, no apparent adverse anesthesia problems. No complications reported per nursing. ROSALINO JURADO CRNA Jun 07, 2022 12:05
--- NOTE | 2022-06-07 17:12 | OPERATIVE REPORT ---
DATE OF SERVICE: 06/07/2022 PREOPERATIVE DIAGNOSES: A 31-year-old female with 1. Chronic pelvic pain. 2. Dyspareunia. 3. History of endometriosis. 4. Dysmenorrhea. POSTOPERATIVE DIAGNOSES: A 31-year-old female with 1. Chronic pelvic pain. 2. Dyspareunia. 3. History of endometriosis. 4. Dysmenorrhea. 5. Right ovarian adhesions. PROCEDURE: Laparoscopic lysis of adhesions, chromotubation. SURGEON: Dr. Hector Campbell. PORTER HEAD: Sahara Baker DNP, was necessary for manipulation and retraction throughout the procedure. ANESTHESIA: General endotracheal. ESTIMATED BLOOD LOSS: Minimal. URINE OUTPUT: 500 mL clear at the end of the procedure. FLUIDS: 1200 mL lactated Ringer solution. FINDINGS: Grossly normal-appearing external female genitalia. Grossly normal-appearing cervix. Grossly normal-appearing uterus, bilateral fallopian tubes. The left ovary is normal. Right ovary appears normal; however adhesed to the right ovarian fossa and right pelvic sidewall. SPECIMENS SENT: None. INDICATIONS FOR PROCEDURE: This 31-year-old female is the patient who had sought care in my office for ongoing issues that she believes had been attributed to endometriosis. In the past, she had been told she had endometriosis. She had been undergoing conservative palliative treatment for endometriosis up to her recent evaluation in the office and the patient has decided that she is wishing to proceed with childbearing, has had difficulty getting in the past. She is having pain with intercourse and wished to be reevaluated laparoscopically, had been greater than five years since her previous surgery. Risk of laparoscopy discussed with the patient in detail. After all of her questions were answered, we also discussed performing chromotubation to ensure tubal patency was not inhibiting factor for fertility. After all of her questions were answered, consent was obtained, the patient was taken to the operating room. OPERATIVE REPORT IN DETAIL: Once in the operating room, LMA general anesthesia was found to be adequate. She was placed in the dorsal lithotomy position, prepped and draped in normal sterile fashion. A timeout was performed. Roberts catheter was placed using sterile technique. Graves speculum was inserted into the patient's vagina, which was used to visualize the cervix, which was grasped at 12 o'clock position using a single tooth tenaculum. I then gently sound the uterine cavity, depth was found to be 6 cm. I placed a Kronner uterine manipulator to a depth of 6 cm, deploying the balloon within the uterus. I removed all the other instruments from the patient's vagina, performed change of gloves, turned my attention to the abdomen, where subcostally at the midclavicular line, I introduced a Veress needle through the incision through the skin until the intraperitoneal placement was confirmed using saline drop test and opening pressure of 5 mmHg was noted. I proceeded with CO2 insufflation to maximum pressure of 15 mmHg, at which point I make a 5 mm infraumbilical incision with a knife and direct a blunt laparoscopic 5 mm trocar through the incision to ensure proper placement was confirmed using the laparoscope. There was no evidence of damage from my entry. There was no evidence of damage from the Veress entry site in the upper abdominal anatomy. The remainder of the upper abdominal anatomy appears to be grossly unremarkable. The Veress needle was removed at that point. I then had the patient placed in steep Trendelenburg where I am able to visualize all my pelvic anatomy as defined in my findings above. I placed a suprapubic trocar, was necessary for dissection and manipulation. It is a 5 mm trocar placed under direct visualization of laparoscope. Once this trocar was in place, I used blunt dissection and a suction patternmaker metal bench to take down the filmy and dense adhesions of the right ovary to the right ovarian fossa and right pelvic sidewall. This was done slowly with care not to encounter any type of bleeding or damage to the ovary. Once this was taken down, I copiously irrigated the pelvis using normal saline. There was no active bleeding noted from any of my dissection planes. I then performed a chromotubation using methylene blue through the Kronner uterine manipulator and there was bilateral patent tubes are appreciated as dye spills from the distal ampullary portion of both fallopian tubes. I then copiously irrigated the methylene blue out of the pelvis as best as I can using normal saline and a suction patternmaker metal bench, after which there is no active bleeding noted from any of my dissection planes. I then had the patient taken out of steep Trendelenburg where I removed the suprapubic trocar under direct visualization of laparoscope. The infraumbilical trocar was left in place to release the remainder of insufflation and to introduce 10 mL 0.25% Marcaine in peritoneal cavity for postoperative pain management. I then removed the trocar as well. The skin reapproximated using Dermabond. Band-Aids were placed over all incisions. Roberts catheter, Kronner uterine manipulator removed at the end of the procedure. The patient tolerated the procedure well and was taken to recovery area in stable condition. Lap and sponge counts were correct at the end of procedure, instrument counts were correct as well. Job ID: [id number] DocumentID: [id number] Dictated Date: 06/07/2022 09:55:21 Awning Installer Date: 06/07/2022 17:11:00 Dictated By: DO TONY GIRALDO
== END 2022-06-07 12:05 | disposition home or self-care (01) ==
LOC: SDC 06:59
PROVIDERS: ATTEND Obstetrics & Gynecology
DX: N73.6 Female pelvic peritoneal adhesions (postinfective) (principal); N80.9 Endometriosis, unspecified
CPT/HCPCS: 36415; 84703; 85025; 86850; 86900; 86901; 87081

== ENCOUNTER → 2022-06-30 | Outpatient (CLI) | payer OTHER ==
[~2022-06-30] MED LIST changes: +IBUP-844 PO
--- NOTE | 2022-06-30 14:36 | Diagnostic Imaging Report ---
Indication: Chest pain and syncope Portable chest 2:37 PM Heart size and pulmonary vascularity are normal. Lungs are clear. There are no effusions or pneumothoraces. IMPRESSION: Negative chest Dictated by: Dictated on workstation # [id number]
[2022-06-30 14:51] LABS: BASOPHILS % (AUTO) 1 % (0-10); EOSINOPHILS # (AUTO) 0.2 10^3/uL (0.0-0.3); EOSINOPHILS % (AUTO) 4 % (0-10); HEMATOCRIT 39 % (35-52); HEMOGLOBIN 13.6 g/dL (11.5-16.0); LYMPHOCYTES # (AUTO) 1.3 10^3/uL (1.0-4.0); LYMPHOCYTES % (AUTO) 29 % (12-44); MEAN CORPUSCULAR HEMOGLOBIN 34 pg (25-34); MEAN CORPUSCULAR HGB CONC 35 g/dL (32-36); MEAN CORPUSCULAR VOLUME 98 fL (80-99); MEAN PLATELET VOLUME 8.6 fL (9.0-12.2); MONOCYTES # (AUTO) 0.3 10^3/uL (0.0-1.0); MONOCYTES % (AUTO) 8 % (0-12); NEUTROPHILS # (AUTO) 2.5 10^3/uL (1.8-7.8); NEUTROPHILS % (AUTO) 59 % (42-75); PLATELET COUNT 454 10^3/uL (130-400); WHITE BLOOD COUNT 4.3 10^3/uL (4.3-11.0)
[2022-06-30 15:11] LABS: ALANINE AMINOTRANSFERASE 39 U/L (0-55); ALBUMIN 4.6 GM/DL (3.2-4.5); ALKALINE PHOSPHATASE 75 U/L (40-136); BILIRUBIN,TOTAL 0.6 MG/DL (0.1-1.0); BUN/CREATININE RATIO 9; CALCIUM 9.5 MG/DL (8.5-10.1); CARBON DIOXIDE 25 MMOL/L (21-32); CHLORIDE 105 MMOL/L (98-107); CREATININE SERUM 0.87 MG/DL (0.60-1.30); GFR ESTIMATED 92; GLUCOSE 109 MG/DL (70-105); POTASSIUM 3.1 MMOL/L (3.6-5.0); SODIUM 141 MMOL/L (135-145); TOTAL PROTEIN 7.6 GM/DL (6.4-8.2)
[2022-06-30 15:32] LABS: FREE T4 (FREE THYROXINE) 1.26 NG/DL (0.70-1.48)
== END ==
LOC: CARD 14:20
PROVIDERS: ATTEND Nurse Practitioner Family
DX: R07.9 Chest pain, unspecified (principal); R55 Syncope and collapse
CPT/HCPCS: 36415; 71045; 80053; 84439; 84443; 84484; 85025; 85379; 93005

== ENCOUNTER → 2022-09-02 | Outpatient (CLI) | payer OTHER ==
[2022-09-02 14:04] LABS: BASOPHILS % (AUTO) 0 % (0-10); EOSINOPHILS # (AUTO) 0.1 10^3/uL (0.0-0.3); EOSINOPHILS % (AUTO) 1 % (0-10); HEMATOCRIT 39 % (35-52); HEMOGLOBIN 12.7 g/dL (11.5-16.0); LYMPHOCYTES # (AUTO) 1.9 10^3/uL (1.0-4.0); LYMPHOCYTES % (AUTO) 42 % (12-44); MEAN CORPUSCULAR HEMOGLOBIN 31 pg (25-34); MEAN CORPUSCULAR HGB CONC 33 g/dL (32-36); MEAN CORPUSCULAR VOLUME 94 fL (80-99); MEAN PLATELET VOLUME 8.7 fL (9.0-12.2); MONOCYTES # (AUTO) 0.4 10^3/uL (0.0-1.0); MONOCYTES % (AUTO) 8 % (0-12); NEUTROPHILS # (AUTO) 2.1 10^3/uL (1.8-7.8); NEUTROPHILS % (AUTO) 49 % (42-75); PLATELET COUNT 471 10^3/uL (130-400); WHITE BLOOD COUNT 4.4 10^3/uL (4.3-11.0)
[2022-09-02 14:23] LABS: ALANINE AMINOTRANSFERASE 32 U/L (0-55); ALBUMIN 4.7 GM/DL (3.2-4.5); ALKALINE PHOSPHATASE 80 U/L (40-136); BILIRUBIN,TOTAL 0.4 MG/DL (0.1-1.0); BUN/CREATININE RATIO 14; CALCIUM 9.3 MG/DL (8.5-10.1); CARBON DIOXIDE 25 MMOL/L (21-32); CHLORIDE 105 MMOL/L (98-107); CREATININE SERUM 0.79 MG/DL (0.60-1.30); GFR ESTIMATED 104; GLUCOSE 99 MG/DL (70-105); POTASSIUM 3.9 MMOL/L (3.6-5.0); SODIUM 141 MMOL/L (135-145); TOTAL PROTEIN 7.5 GM/DL (6.4-8.2)
== END ==
LOC: LAB 13:49
PROVIDERS: ATTEND Student in an Organized Health Care Education/Training Program
DX: D47.3 Essential (hemorrhagic) thrombocythemia (principal)
CPT/HCPCS: 36415; 80053; 83615; 84443; 85025

== ENCOUNTER → 2022-10-14 | Outpatient (CLI) | payer OTHER ==
[2022-10-14 11:13] LABS: HEMATOCRIT 42 % (35-52); HEMOGLOBIN 14.1 g/dL (11.5-16.0); MEAN CORPUSCULAR HEMOGLOBIN 29 pg (25-34); WHITE BLOOD COUNT 3.9 10^3/uL (4.3-11.0)
[2022-10-14 11:14] LABS: BASOPHILS % (AUTO) 1 % (0-10); EOSINOPHILS % (AUTO) 1 % (0-10); LYMPHOCYTES # (AUTO) 1.9 X 10^3 (1.0-4.0); LYMPHOCYTES % (AUTO) 48 % (12-44); MEAN CORPUSCULAR HGB CONC 33 g/dL (32-36); MEAN CORPUSCULAR VOLUME 86 fL (80-99); MEAN PLATELET VOLUME 9.8 fL (9.0-12.2); MONOCYTES # (AUTO) 0.4 X 10^3 (0.0-1.0); MONOCYTES % (AUTO) 9 % (0-12); NEUTROPHILS # (AUTO) 1.7 X 10^3 (1.8-7.8); NEUTROPHILS % (AUTO) 42 % (42-75); PLATELET COUNT 367 10^3/uL (130-400)
[2022-10-14 11:32] LABS: BUN/CREATININE RATIO 13; CALCIUM 9.3 MG/DL (8.5-10.1); CARBON DIOXIDE 24 MMOL/L (21-32); CHLORIDE 104 MMOL/L (98-107); CREATININE SERUM 0.75 MG/DL (0.60-1.30); GFR ESTIMATED 110; GLUCOSE 89 MG/DL (70-105); POTASSIUM 3.9 MMOL/L (3.6-5.0); SODIUM 139 MMOL/L (135-145)
[2022-10-14 11:33] LABS: ALANINE AMINOTRANSFERASE 30 U/L (0-55); ALBUMIN 4.6 GM/DL (3.2-4.5); ALKALINE PHOSPHATASE 88 U/L (40-136); BILIRUBIN,TOTAL 0.4 MG/DL (0.1-1.0)
[2022-10-14 11:45] LABS: EOSINOPHILS % (MANUAL) 2 %; LYMPHOCYTES % (MANUAL) 51 %; MONOCYTES % (MANUAL) 6 %; NEUTROPHILS % (MANUAL) 41 %
== END ==
LOC: LAB FS 10:43
PROVIDERS: ATTEND Student in an Organized Health Care Education/Training Program
DX: D47.3 Essential (hemorrhagic) thrombocythemia (principal)
CPT/HCPCS: 36415; 80053; 82728; 83540; 83550; 83615; 84443; 85007; 85027